=== PATIENT | female | born 1945 | race American Indian/Alaskan Native ===

== ENCOUNTER 2017-04-03 08:32 | Outpatient (CLI) | payer MEDICARE ==
--- NOTE | 2017-04-03 10:06 | Mammography Report ---
Left mammogram: The patient is post right mastectomy for breast cancer. Routine views of the left breast demonstrate a heterogeneously dense fibroglandular pattern. There are 2 small circumscribed nodules in the upper-outer left breast. These findings are unchanged compared to prior examination in April 2016. CAD used. Impression: Stable left breast pattern. Recommendation: Annual mammogram followup. BI-RADS CATEGORY: 1 = Negative ACR BI-RADS MAMMOGRAPHIC CODES: 0 = Needs additional imaging evaluation; 1 = Negative; 2 = Benign; 3 = Probably benign; 4 = Suspicious; 5 = Malignant; 6 = Known biopsy-proven malignancy COMMENT: 1. Dense breast tissue, i.e., adenosis, fibrocystic changes, etc., may obscure an underlying neoplasm. 2. Approximately 10% of cancers are not detected with mammography. 3. A negative mammography report should not delay biopsy if a clinically suspicious mass is present.
--- NOTE | 2017-04-03 10:33 | Mammography Report ---
BONE DENSITY STUDY: Postmenopausal osteoporosis. DEFINITIONS: BMD = Bone Mineral Density T-score = BMD related to mean peak bone mass of young adult (mean expressed in Standard Deviation) Z-score = Age matched BMD expressed in SD World Health Organization (WHO) Diagnostic Criteria Normal T-score > -1 SD Osteopenia T-score between -1 and -2.4 SD Osteoporosis T-score -2.5 SD or below FINDINGS: The weighted average BMD of lumbar spine L1-L4 is 1.116 with a T-score of -0.3. The weighted average BMD of the left hip is 0.898 with a T-score of -0.9. IMPRESSION: The patient's average T-score is diagnostic for normal bone density and low relative risk for fracture. NOTE: BMD is not the only risk factor for fracture; also consider factors such as the patient's age, risk of falling, previous osteoporotic fracture, family history of osteoporotic fractures, current smoker, and low body weight. Acosta's triangle is a region of interest in femur, predominantly of trabecular bone. It is not a true anatomic site, and ISCD does not recommend its use clinically.
== END 2017-04-03 08:33 | disposition home or self-care (01) ==
LOC: SPVWC 08:32
PROVIDERS: ATTEND Internal Medicine Hematology
DX: Z12.31 Encounter for screening mammogram for malignant neoplasm of breast (principal); Z78.0 Asymptomatic menopausal state; Z85.3 Personal history of malignant neoplasm of breast; Z90.11 Acquired absence of right breast and nipple; Z79.811 Long term (current) use of aromatase inhibitors
CPT/HCPCS: 77080; G0202

== ENCOUNTER 2017-11-13 08:59 | Outpatient (CLI) | payer MEDICARE ==
--- NOTE | 2017-11-13 15:45 | Cat Scan Report ---
CT ABDOMEN AND PELVIS WITH CONTRAST: 11/13/17 08:59:00 CLINICAL: Right breast cancer followup. COMPARISON: 05/15/16 TECHNIQUE: Volumetric acquisition and 1.25 millimeter scan reconstructions after the uneventful intravenous injection of 100 cc Omnipaque 300. Consent was obtained prior to the administration of contrast. Oral contrast was also given. FINDINGS: Abdomen: Status post right mastectomy. The lung bases are clear. Pacer leads in heart.Normal liver, bile ducts and gallbladder. The gallbladder is partially contracted with no stones. Normal stomach, duodenum, pancreas and spleen. Normal adrenal glands. A stable 1.4 cm left upper pole renal cyst. The kidneys are otherwise normal. The renal collecting systems and ureters are nondilated. No intraperitoneal or retroperitoneal lymphadenopathy. Mild calcification of the abdominal aorta and iliac arteries. Normal small bowel.Normal ascending, transverse and descending colon. The appendix is normal. No mass or ascites. A stable small fat containing umbilical hernia. The ventral fascial defect measures 1.3 cm.No pneumoperitoneum. Pelvis: The uterus is absent. Fullness of the left side of the vaginal cuff appears to be related to a normal ovary at the cuff. It measures 2.4 x 2.0 cm. A right ovary is not identified. No adnexal mass or free fluid. Bone windows demonstrate no suspicious bone lesion. IMPRESSION:1. No evidence of metastasis. 2. Status post hysterectomy and right salpingo-oophorectomy.
== END 2017-11-13 09:00 | disposition home or self-care (01) ==
LOC: SPVIMAG 08:59
PROVIDERS: ATTEND Internal Medicine Hematology
DX: C50.411 Malignant neoplasm of upper-outer quadrant of right female breast (principal); K42.9 Umbilical hernia without obstruction or gangrene; I70.0 Atherosclerosis of aorta; Z90.11 Acquired absence of right breast and nipple; Z95.0 Presence of cardiac pacemaker; Z28.1 Immunization not carried out because of patient decision for reasons of belief or group pressure; Z90.710 Acquired absence of both cervix and uterus; Z90.721 Acquired absence of ovaries, unilateral
CPT/HCPCS: 74177; Q9967

== ENCOUNTER → 2018-04-06 | Outpatient (CLI) | payer MEDICARE ==
--- NOTE | 2018-04-07 12:52 | Mammography Report ---
LEFT DIGITAL SCREENING MAMMOGRAM with CAD: 04/06/18 10:34:00 CLINICAL: Routine screening. Breast cancer survivor status post right mastectomy. Previous left benign biopsy. COMPARISON:04/03/17 FINDINGS: The breast is heterogeneously dense, which may obscure small masses.No mass, suspicious architectural distortion or suspicious calcifications. IMPRESSION: No mammographic evidence of malignancy. BI-RADS CATEGORY: 2 -- Benign RECOMMENDATION: Routine screening in one year. ACR BI-RADS MAMMOGRAPHIC CODES: 0 = Needs additional imaging evaluation; 1 = Negative; 2 = Benign; 3 = Probably benign; 4 = Suspicious; 5 = Malignant; 6 = Known biopsy-proven malignancy COMMENT: 1. Dense breast tissue, i.e., adenosis, fibrocystic changes, etc., may obscure an underlying neoplasm. 2. Approximately 10% of cancers are not detected with mammography. 3. A negative mammography report should not delay biopsy if a clinically suspicious mass is present. COMMENT: Patient follow-up letters are generated via our [employer] application.
== END | disposition home or self-care (01) ==
LOC: SPVWC 10:34
PROVIDERS: ATTEND Internal Medicine Hematology
DX: Z12.31 Encounter for screening mammogram for malignant neoplasm of breast (principal)

== ENCOUNTER 2019-04-11 09:45 | Outpatient (CLI) | payer MEDICARE ==
--- NOTE | 2019-04-12 09:11 | Mammography Report ---
LEFT DIGITAL SCREENING MAMMOGRAM WITH CAD INDICATION: Routine screening mammography. Previous left benign biopsy. TECHNIQUE: Digital left 2D mammography was obtained in the craniocaudal and mediolateral oblique pro jections. This examination was interpreted with the benefit of Computer-Aided Detection analysis. COMPARISON: 04/06/2018 FINDINGS: Breast Density: The breast is heterogeneously dense, which may obscure small masses. A few scattered benign calcifications. No mass, architectural distortion or suspicious calcifications. IMPRESSION:No mammographic evidence of malignancy. BI-RADS Category 2: Benign. No mammographic evidence of malignancy. Recommend routine screening ma mmography in one year. A "normal" or negative report should not discourage follow up or biopsy of a clinically significant f inding. A written summary of these findings will be mailed to the patient. The patient will be entered into a mammography reporting system which will generate a reminder letter for the patient's next appointmen t at the appropriate interval. The [employer] recommends yearly mammograms starting at age 40 and continuing as l annie as a woman is in good health. Breast MRI is recommended for women with an approximate 20-25% or greater lifetime risk of breast cancer, including women with a strong family history of breast or ova renetta cancer or who have been treated for Hodgkin's disease. Signer Name: Dejuan Gomes MD Signed: 04/12/2019 9:07 AM Workstation Name: [id number]
== END 2019-04-11 09:46 | disposition home or self-care (01) ==
LOC: SPVWC 09:45
PROVIDERS: ATTEND Internal Medicine Hematology
DX: Z12.31 Encounter for screening mammogram for malignant neoplasm of breast (principal)

== ENCOUNTER 2020-04-12 09:19 | Outpatient (CLI) | payer MEDICARE ==
--- NOTE | 2020-04-12 10:18 | Mammography Report ---
DIGITAL SCREENING MAMMOGRAM WITH CAD, 04/12/2020 INDICATION: Routine screening mammography. TECHNIQUE: Digital left 2D mammography was obtained in the craniocaudal and mediolateral oblique pro jections. This examination was interpreted with the benefit of Computer-Aided Detection analysis. COMPARISON: 04/11/2019, 04/06/2018 FINDINGS: Breast Density: The breasts are heterogeneously dense, which may obscure small masses. There is no evidence of dominant mass, suspicious calcifications or architectural distortion in the l eft breast. Stable postsurgical changes noted with stable benign calcifications. IMPRESSION: Follow up recommendation: Routine yearly BI-RADS Category 2: Benign. A "normal" or negative report should not discourage follow up or biopsy of a clinically significant f inding. A written summary of these findings will be mailed to the patient. The patient will be entered into a mammography reporting system which will generate a reminder letter for the patient's next appointmen t at the appropriate interval. The [employer] recommends yearly mammograms starting at age 40 and continuing as l annie as a woman is in good health. Breast MRI is recommended for women with an approximate 20-25% or greater lifetime risk of breast cancer, including women with a strong family history of breast or ova renetta cancer or who have been treated for Hodgkin's disease. Signer Name: Valerio Bailey MD Signed: 04/12/2020 10:14 AM Workstation Name: [id number]
== END 2020-04-12 09:20 | disposition home or self-care (01) ==
LOC: SPVWC 09:19
PROVIDERS: ATTEND Internal Medicine Hematology & Oncology
DX: Z12.31 Encounter for screening mammogram for malignant neoplasm of breast (principal); N64.89 Other specified disorders of breast

== ENCOUNTER 2020-08-10 08:49 | Outpatient (CLI) | payer MEDICARE ==
--- NOTE | 2020-08-15 11:46 | Mammography Report ---
DEXA BONE DENSITY SCAN INDICATION / CLINICAL INFORMATION: BREAST CA RIGHT/ MENOPAUSAL STATE/ PL [employer]. 74 years Female COMPARISON: 04/03/2017 LUMBAR SPINE (L1-L4): - Bone mineral density (BMD) = 1.190 g/cm2. - T-score = 0.4 - Z-score = 3.1 Change (%) since most recent prior (if available): 6.6% increase FEMORAL NECKS: - Left femoral neck Bone mineral density (BMD) = 0.856 g/cm2. - T-score = -0.7 - Z-score = 1.0 Change (%) since most recent prior (if available): 3.7% increase IMPRESSION: 1. WHO Classification: Normal bone density. Fracture Risk: Not Increased. BMD Reporting Guidelines (ISCD, 2015) BMD Reporting in Postmenopausal Women and in Men Age 50 and Older * T-scores are preferred. * The WHO densitometric classification is applicable. BMD Reporting in Females Prior to Menopause and in Males Younger Than Age 50 * Z-scores, not T-scores, are preferred. This is particularly important in children. * A Z-score of -2.0 or lower is defined as below the expected range for age, and a Z-score above -2. 0 is within the expected range for age. * Osteoporosis cannot be diagnosed in men under age 50 on the basis of BMD alone. * The WHO diagnostic criteria may be applied to women in the menopausal transition. http://www.iscd.org/official-positions/1295-sdvz-seigbasv-positions-adult/ Signer Name: Santos Traore MD Signed: 08/15/2020 11:42 AM Workstation Name: [id number]
== END 2020-08-10 08:50 | disposition home or self-care (01) ==
LOC: SPVWC 08:49
PROVIDERS: ATTEND Internal Medicine Hematology
DX: C50.411 Malignant neoplasm of upper-outer quadrant of right female breast (principal); N95.1 Menopausal and female climacteric states; Z79.811 Long term (current) use of aromatase inhibitors
CPT/HCPCS: 77080

== ENCOUNTER 2021-04-23 10:12 | Outpatient (CLI) | payer MEDICARE ==
--- NOTE | 2021-04-23 11:08 | Mammography Report ---
DIGITAL SCREENING MAMMOGRAM WITH CAD, 04/23/2021 CLINICAL INFORMATION / INDICATION: Routine screening mammography. History of right breast malignancy. TECHNIQUE: Digital left 2D mammography was obtained in the craniocaudal and mediolateral oblique pro jections. This examination was interpreted with the benefit of Computer-Aided Detection analysis. COMPARISON: 04/12/2020, 04/11/2019 FINDINGS: Breast Density: The breasts are heterogeneously dense, which may obscure small masses. No dominant mass, suspicious calcifications, or architectural distortion in the left breast. Postsurg ical scars present. Cardiac pacemaker present. Overall, no interval change. IMPRESSION: No mammographic evidence of malignancy. Follow up recommendation: Routine yearly BI-RADS Category 2: Benign. A "normal" or negative report should not discourage follow up or biopsy of a clinically significant f inding. A written summary of these findings will be mailed to the patient. The patient will be entered into a mammography reporting system which will generate a reminder letter for the patient's next appointmen t at the appropriate interval. The [employer] recommends yearly mammograms starting at age 40 and continuing as l annie as a woman is in good health. Breast MRI is recommended for women with an approximate 20-25% or greater lifetime risk of breast cancer, including women with a strong family history of breast or ova renetta cancer or who have been treated for Hodgkin's disease. Signer Name: Eve Rice MD Signed: 04/23/2021 11:03 AM Workstation Name: [id number]
== END 2021-04-23 10:13 | disposition home or self-care (01) ==
LOC: SPVWC 10:12
PROVIDERS: ATTEND Internal Medicine Hematology
DX: Z12.31 Encounter for screening mammogram for malignant neoplasm of breast (principal)

== ENCOUNTER 2022-05-14 13:47 | Outpatient (CLI) | payer MEDICARE ==
--- NOTE | 2022-05-16 10:20 | Mammography Report ---
DIGITAL SCREENING MAMMOGRAM WITH CAD, 05/14/2022 CLINICAL INFORMATION / INDICATION: Routine screening mammography. TECHNIQUE: Digital left 2D mammography was obtained in the craniocaudal and mediolateral oblique pro jections. This examination was interpreted with the benefit of Computer-Aided Detection analysis. COMPARISON: Prior mammogram 04/23/2021 and 04/12/2020 FINDINGS: Breast Density: The breasts are heterogeneously dense, which may obscure small masses. No dominant mass, suspicious calcifications, or architectural distortion in the left breast. There is stable benign postsurgical change in the left breast. There has been no significant change c ompared with the prior examinations. An implanted cardiac device overlies the left axilla. IMPRESSION: No mammographic evidence of malignancy. Follow up recommendation: Routine yearly screening mammogram. - The ACR recommends yearly screening MRI in patients with a personal history of breast cancer who duncan ve dense fibroglandular tissue as well in patients who were diagnosed with breast cancer under the ag e of 50. BI-RADS Category 2: BENIGN. A "normal" or negative report should not discourage follow up or biopsy of a clinically significant f inding. A written summary of these findings will be mailed to the patient. The patient will be entered into a mammography reporting system which will generate a reminder letter for the patient's next appointmen t at the appropriate interval. The [employer] recommends yearly mammograms starting at age 40 and continuing as l annie as a woman is in good health. Breast MRI is recommended for women with an approximate 20-25% or greater lifetime risk of breast cancer, including women with a strong family history of breast or ova renetta cancer or who have been treated for Hodgkin's disease. Signer Name: Milagro Killian MD Signed: 05/16/2022 10:16 AM Workstation Name: [id number]
== END 2022-05-14 13:48 | disposition home or self-care (01) ==
LOC: SPVWC 13:47
PROVIDERS: ATTEND Internal Medicine Hematology
DX: Z12.31 Encounter for screening mammogram for malignant neoplasm of breast (principal); C50.411 Malignant neoplasm of upper-outer quadrant of right female breast; D64.9 Anemia, unspecified; R68.89 Other general symptoms and signs; R07.89 Other chest pain; E04.1 Nontoxic single thyroid nodule